=== PATIENT | male | born 1985 | race Native Hawaiian/Other Pacific Islander ===

== ENCOUNTER 2022-02-01 07:59 | Outpatient (CLI) | payer OTHER | END 2022-02-01 21:02 | disposition home or self-care (01) | LOC: CT 07:59 | PROVIDERS: ATTEND Nurse Practitioner Family | DX: R22.42 Localized swelling, mass and lump, left lower limb (principal) | CPT/HCPCS: 36415; 82565; 84520; Q9963 ==

== ENCOUNTER 2023-03-21 08:53 | Outpatient (CLI) | payer OTHER | END 2023-03-21 17:00 | disposition home or self-care (01) | LOC: RAD 08:53 | PROVIDERS: ATTEND Physician Assistant | DX: M54.59 Other low back pain (principal) ==

== ENCOUNTER 2023-04-05 09:44 | Outpatient (CLI) | payer OTHER ==
[2023-04-05 10:23] LABS: PLATELET COUNT 191 K/uL (142-355)
== END 2023-04-05 19:13 ==
LOC: CT 09:44
PROVIDERS: ATTEND Physician Assistant
DX: M54.16 Radiculopathy, lumbar region (principal)
CPT/HCPCS: 36415; 82565; 84520; 85027; 85610; 85730

== ENCOUNTER 2023-04-26 08:52 | Outpatient (CLI) | payer OTHER ==
[2023-04-26 09:09] LABS: PLATELET COUNT 225 K/uL (142-355)
== END 2023-04-26 18:56 | disposition home or self-care (01) ==
LOC: CT 08:52
PROVIDERS: ATTEND Physician Assistant
DX: M54.16 Radiculopathy, lumbar region (principal); Z51.89 Encounter for other specified aftercare
CPT/HCPCS: 36415; 85027; 85610